=== PATIENT | male | born 1955 | race Caucasian/White ===

== ENCOUNTER 2019-02-06 07:52 | Inpatient (IN) ==
[2019-02-06] MEDS ORDERED: 0.9 % SODIUM CHLORIDE 1,000 ML IV ONE (08:07)
--- NOTE | 2019-02-06 09:05 | Emergency Department Note ---
General Adult HPI - General Chief complaint: Urogenital-Male Stated complaint: Hernia pain, Left leg pain, genital pain Time Seen by Provider: 02/06/19 09:02 Source: family, EMS Mode of arrival: EMS Limitations: no limitations - History of Present Illness HPI Narrative: Patient comes in for pain to the right lower extremity. Generally not feeling well. He's also had right inguinal hernia for the last several months with swelling in the groin area but he denies significant pain in that area. Mostly the pain is in the right lower leg which is erythematous also with a scab to the right lateral lower leg. He's been scratching at this. It generally does not feel well. He has some nausea but no vomiting, denies diarrhea, denies abdominal pain - Related Data Allergies Allergy/AdvReac Type Severity Reaction Status Date / Time No Known Drug Allergies Allergy Verified 02/06/19 07:57 Review of Systems Constitutional: Reports: fever, chills ENT ED: Denies: ear pain, throat pain Cardiovascular: Denies: chest pain, palpitations Respiratory: Denies: shortness of breath, cough Gastrointestinal: Reports: nausea. Denies: vomiting, diarrhea, constipation Genitourinary: Reports: testicular pain Musculoskeletal: Denies: back pain Past Medical History - Past Medical History Source: nursing notes reviewed Medical history: Reports: arthritis Surgical history ED: Reports: non-contributory - Social History smoking status: Former smoker Physical Exam Limitations: no limitations General appearance: alert, in no apparent distress, other (seems somewhat somnolent, responds however, awake alert oriented 3.) Head: atraumatic, normocephalic, other (disheveled and unkempt head) Eye: Present: normal appearance, PERRL, EOMI. Absent: scleral icterus ENT: normal exam, mucous membranes dry, TM's normal bilaterally Neck: Present: normal inspection, full ROM, trachea midline Chest: Present: normal inspection. Absent: symmetric chest wall rise Respiratory: Present: normal lung sounds bilaterally. Absent: respiratory distress Cardiovascular: Present: regular rate, normal heart sounds Abdominal: Present: soft, normal bowel sounds, hernia, other (large hernia to the right groin area.). Absent: tenderness : Present: testicular tenderness, other (large inguinal hernia on the right. He also has a small lesion to the shaft, less than 0.5 cm in size.) Extremities: Present: full ROM, tenderness, normal capillary refill, other (also notably he has significant track moise to the antecubital regions on both arms. Not markedly erythematous right lower leg on the lateral side ) Back: Absent: CVA tenderness (R), CVA tenderness (L) Neurological: Present: alert Psychiatric: Present: depressed Skin: Present: warm, dry, normal color, pallor Course - Reevaluation(s) Reevaluation #1: Patient was started on IV antibiotics. We had difficult time finding IV access it. I tried the external jugular in his neck on the right side. This was unsuccessful attempt. Further nurse was able to get in and IV to his left lower leg. At this point he may need venous access, he definitely has cellulitis to the right lower extremity with swelling and redness to the right lower leg. Still may need evaluation for DVT i.e. ultrasound or Doppler of the right lower extremity. Discussed hospital admission with our hospitalist Dr. Rodriguez Vital Signs Temperature 98.4 F 02/06/19 07:53 Pulse Rate 104 H 02/06/19 07:53 Respiratory Rate 18 02/06/19 07:53 Blood Pressure 129/87 02/06/19 07:53 Pulse Oximetry (%) 96 02/06/19 07:53 Temperature 100 F H 02/06/19 12:49 Pulse Rate 105 H 02/06/19 12:49 Respiratory Rate 22 02/06/19 12:49 Blood Pressure 117/81 02/06/19 12:49 Pulse Oximetry (%) 97 02/06/19 12:49 Medical Decision Making - [facility] Narrative Medical decision making narrative: Labs reviewed. His white count is elevated 14,000. He does have a large right inguinal hernia which clinically is soft and not incarcerated. I believe his white count is from cellulitis to the right lower extremity. We'll discuss with hospitalist regarding hospital admission. Final impression is right lower extremity cellulitis. With his tachycardia does meet sepsis criteria. 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 - Lab Data Result diagrams: 02/06/19 09:25 02/06/19 09:25 Lab Results 02/06/19 02/06/19 02/06/19 Range/Units 09:25 09:25 09:25 WBC 14.2 H (4.5-11.0) K/mcL RBC 4.42 L (4.50-5.90) M/mcL Hgb 13.9 (13.5-16.5) g/dL Hct 42.2 (41.0-55.0) % POC Hct (41.0-55.0) % MCV 95.4 (80.0-100.0) fL MCH 31.5 (26.0-34.0) pg MCHC 33.0 (31.0-36.0) g/dL RDW 13.6 (11.5-14.5) % Plt Count 119 L (140-440) K/mcL MPV 9.7 (7.4-10.4) fL Gran % 73.4 (38.0-78.0) % Lymph % (Auto) 18.1 (15.5-49.0) % [place] % (Auto) 6.5 (1.0-12.0) % Eos % (Auto) 1.6 (0.0-7.0) % Baso % (Auto) 0.4 (0.0-2.0) % Gran # 10.4 H (1.8-8.0) K/mcL Lymph # (Auto) 2.6 (1.5-4.8) K/mcL [place] # (Auto) 0.9 (0.1-0.9) K/mcL Eos # (Auto) 0.2 (0.0-0.7) K/mcL Baso # (Auto) 0.1 (0.0-0.3) K/mcL VBG Lactic Acid 0.9 (0.5-2.0) mmol/L POC Sodium (133-145) mmol/L Sodium 133 (133-145) mmol/L POC Potassium (3.3-5.1) mmol/L Potassium 4.5 (3.3-5.1) mmol/L POC Chloride (96-108) mmol/L Chloride 102 (96-108) mmol/L Carbon Dioxide 18 L (22-30) mmol/L POC Total CO2 (22-30) mmol/L Anion Gap 13.0 (8-16) POC BUN (8-23) mg/dl BUN 17 (8-23) mg/dl Creatinine 1.0 (0.7-1.2) mg/dl POC Creatinine (0.7-1.2) mg/dl GFR Calculation 79 Glucose 105 (70-105) mg/dL POC Glucose (70-105) mg/dL Calcium 9.0 (8.6-10.4) mg/dl POC WB Ioniz Calcium (1.16-1.32) mmol/L Total Bilirubin 0.3 (0.0-1.0) mg/dL AST 20 (0-37) U/l ALT 15 (0-40) U/l Alkaline Phosphatase 79 (39-117) U/L C-Reactive Protein (0.0-0.8) mg/dl Total Protein 6.7 (5.9-8.4) gm/dL Albumin 3.5 (3.2-5.2) gm/dL Globulin 3.2 (2.2-3.7) gm/dL Albumin/Globulin Ratio 1.1 (1.0-2.3) Urine Color Urine Appearance Urine pH (5.0-9.0) Ur Specific [place] (1.000-1.035) Urine Protein (NEG) mg/dL Urine Glucose (UA) (NEG) mg/dL Urine Ketones (NEG) mg/dL Urine Occult Blood (<0.03) mg/dL Urine Nitrate (NEG) Urine Bilirubin (NEG) mg/dL Urine Urobilinogen (NEG) mg/dL Ur Leukocyte Esterase (NEG) /uL Urine RBC (0-1) /hpf Urine WBC (0-4) /hpf Ur Squamous Epith Cells (0-4) /hpf Urine Bacteria (0) /hpf Urine Mucus (0) /hpf Ur Culture Indicated? Urine Opiates Screen (NONDETECTED) Ur Oxycodone Screen (NONDETECTED) Urine Methadone Screen (NONDETECTED) Ur Barbiturates Screen (NONDETECTED) Ur Phencyclidine Scrn (NONDETECTED) Ur Amphetamines Screen (NONDETECTED) U Benzodiazepines Scrn (NONDETECTED) Urine Cocaine Screen (NONDETECTED) U Marijuana (THC) Screen (NONDETECTED) 02/06/19 02/06/19 02/06/19 Range/Units 09:25 09:41 10:01 WBC (4.5-11.0) K/mcL RBC (4.50-5.90) M/mcL Hgb (13.5-16.5) g/dL Hct (41.0-55.0) % POC Hct 42.0 (41.0-55.0) % MCV (80.0-100.0) fL MCH (26.0-34.0) pg MCHC (31.0-36.0) g/dL RDW (11.5-14.5) % Plt Count (140-440) K/mcL MPV (7.4-10.4) fL Gran % (38.0-78.0) % Lymph % (Auto) (15.5-49.0) % [place] % (Auto) (1.0-12.0) % Eos % (Auto) (0.0-7.0) % Baso % (Auto) (0.0-2.0) % Gran # (1.8-8.0) K/mcL Lymph # (Auto) (1.5-4.8) K/mcL [place] # (Auto) (0.1-0.9) K/mcL Eos # (Auto) (0.0-0.7) K/mcL Baso # (Auto) (0.0-0.3) K/mcL VBG Lactic Acid (0.5-2.0) mmol/L POC Sodium 136 (133-145) mmol/L Sodium (133-145) mmol/L POC Potassium 4.2 (3.3-5.1) mmol/L Potassium (3.3-5.1) mmol/L POC Chloride 105 (96-108) mmol/L Chloride (96-108) mmol/L Carbon Dioxide (22-30) mmol/L POC Total CO2 23 (22-30) mmol/L Anion Gap (8-16) POC BUN 21 (8-23) mg/dl BUN (8-23) mg/dl Creatinine (0.7-1.2) mg/dl POC Creatinine 0.9 (0.7-1.2) mg/dl GFR Calculation Glucose (70-105) mg/dL POC Glucose 111 H (70-105) mg/dL Calcium (8.6-10.4) mg/dl POC WB Ioniz Calcium 0.93 L (1.16-1.32) mmol/L Total Bilirubin (0.0-1.0) mg/dL AST (0-37) U/l ALT (0-40) U/l Alkaline Phosphatase (39-117) U/L C-Reactive Protein 5.6 H (0.0-0.8) mg/dl Total Protein (5.9-8.4) gm/dL Albumin (3.2-5.2) gm/dL Globulin (2.2-3.7) gm/dL Albumin/Globulin Ratio (1.0-2.3) Urine Color Urine Appearance Urine pH (5.0-9.0) Ur Specific [place] (1.000-1.035) Urine Protein (NEG) mg/dL Urine Glucose (UA) (NEG) mg/dL Urine Ketones (NEG) mg/dL Urine Occult Blood (<0.03) mg/dL Urine Nitrate (NEG) Urine Bilirubin (NEG) mg/dL Urine Urobilinogen (NEG) mg/dL Ur Leukocyte Esterase (NEG) /uL Urine RBC (0-1) /hpf Urine WBC (0-4) /hpf Ur Squamous Epith Cells (0-4) /hpf Urine Bacteria (0) /hpf Urine Mucus (0) /hpf Ur Culture Indicated? Urine Opiates Screen None detected (NONDETECTED) Ur Oxycodone Screen None detected (NONDETECTED) Urine Methadone Screen None detected (NONDETECTED) Ur Barbiturates Screen None detected (NONDETECTED) Ur Phencyclidine Scrn None detected (NONDETECTED) Ur Amphetamines Screen Suspect positive A (NONDETECTED) U Benzodiazepines Scrn None detected (NONDETECTED) Urine Cocaine Screen None detected (NONDETECTED) U Marijuana (THC) Screen None detected (NONDETECTED) 02/06/19 Range/Units 10:01 WBC (4.5-11.0) K/mcL RBC (4.50-5.90) M/mcL Hgb (13.5-16.5) g/dL Hct (41.0-55.0) % POC Hct (41.0-55.0) % MCV (80.0-100.0) fL MCH (26.0-34.0) pg MCHC (31.0-36.0) g/dL RDW (11.5-14.5) % Plt Count (140-440) K/mcL MPV (7.4-10.4) fL Gran % (38.0-78.0) % Lymph % (Auto) (15.5-49.0) % [place] % (Auto) (1.0-12.0) % Eos % (Auto) (0.0-7.0) % Baso % (Auto) (0.0-2.0) % Gran # (1.8-8.0) K/mcL Lymph # (Auto) (1.5-4.8) K/mcL [place] # (Auto) (0.1-0.9) K/mcL Eos # (Auto) (0.0-0.7) K/mcL Baso # (Auto) (0.0-0.3) K/mcL VBG Lactic Acid (0.5-2.0) mmol/L POC Sodium (133-145) mmol/L Sodium (133-145) mmol/L POC Potassium (3.3-5.1) mmol/L Potassium (3.3-5.1) mmol/L POC Chloride (96-108) mmol/L Chloride (96-108) mmol/L Carbon Dioxide (22-30) mmol/L POC Total CO2 (22-30) mmol/L Anion Gap (8-16) POC BUN (8-23) mg/dl BUN (8-23) mg/dl Creatinine (0.7-1.2) mg/dl POC Creatinine (0.7-1.2) mg/dl GFR Calculation Glucose (70-105) mg/dL POC Glucose (70-105) mg/dL Calcium (8.6-10.4) mg/dl POC WB Ioniz Calcium (1.16-1.32) mmol/L Total Bilirubin (0.0-1.0) mg/dL AST (0-37) U/l ALT (0-40) U/l Alkaline Phosphatase (39-117) U/L C-Reactive Protein (0.0-0.8) mg/dl Total Protein (5.9-8.4) gm/dL Albumin (3.2-5.2) gm/dL Globulin (2.2-3.7) gm/dL Albumin/Globulin Ratio (1.0-2.3) Urine Color Yellow Urine Appearance Clear Urine pH 7.0 (5.0-9.0) Ur Specific [place] 1.021 (1.000-1.035) Urine Protein Neg (NEG) mg/dL Urine Glucose (UA) 50 A (NEG) mg/dL Urine Ketones Neg (NEG) mg/dL Urine Occult Blood 0.03 A (<0.03) mg/dL Urine Nitrate Neg (NEG) Urine Bilirubin Neg (NEG) mg/dL Urine Urobilinogen Neg (NEG) mg/dL Ur Leukocyte Esterase Neg (NEG) /uL Urine RBC 7 H (0-1) /hpf Urine WBC < 1 (0-4) /hpf Ur Squamous Epith Cells 0 (0-4) /hpf Urine Bacteria 0 (0) /hpf Urine Mucus Few (0) /hpf Ur Culture Indicated? No Urine Opiates Screen (NONDETECTED) Ur Oxycodone Screen (NONDETECTED) Urine Methadone Screen (NONDETECTED) Ur Barbiturates Screen (NONDETECTED) Ur Phencyclidine Scrn (NONDETECTED) Ur Amphetamines Screen (NONDETECTED) U Benzodiazepines Scrn (NONDETECTED) Urine Cocaine Screen (NONDETECTED) U Marijuana (THC) Screen (NONDETECTED) Disposition Pt seen by HEALTH SCIENCES MANAGER/PA only: No Clinical Impression: Cellulitis of right leg Disposition: Xfer As Inpt ([facility]) Condition: Fair
[2019-02-06] MEDS ORDERED: VANCOMYCIN 1,500 MG in 0.9 % SODIUM CHLORIDE 500 ML IV ONE (09:07)
[2019-02-06 09:47] LABS: POC Blood Urea Nitrogen 21 mg/dl (8-23); POC CO2 23 mmol/L (22-30); POC Calcium, Ionized 0.93 mmol/L (1.16-1.32); POC Chloride 105 mmol/L (96-108); POC Creatinine 0.9 mg/dl (0.7-1.2); POC Glucose, Random 111 mg/dL (70-105); POC Potassium 4.2 mmol/L (3.3-5.1); POC Sodium 136 mmol/L (133-145)
[2019-02-06 10:22] LABS: Basophils # (Auto) 0.1 K/mcL (0.0-0.3); Basophils % (Auto) 0.4 % (0.0-2.0); Eosinophils # (Auto) 0.2 K/mcL (0.0-0.7); Eosinophils % (Auto) 1.6 % (0.0-7.0); Granulocytes % (Auto) 73.4 % (38.0-78.0); Hematocrit 42.2 % (41.0-55.0); Hemoglobin 13.9 g/dL (13.5-16.5); Lymphocytes # (Auto) 2.6 K/mcL (1.5-4.8); Lymphocytes % (Auto) 18.1 % (15.5-49.0); Mean Cell Volume 95.4 fL (80.0-100.0); Mean Platelet Volume 9.7 fL (7.4-10.4); Monocytes # (Auto) 0.9 K/mcL (0.1-0.9); Monocytes % (Auto) 6.5 % (1.0-12.0); Platelet Count 119 K/mcL (140-440); RBC 4.42 M/mcL (4.50-5.90); Red Cell Distribution Width 13.6 % (11.5-14.5); WBC 14.2 K/mcL (4.5-11.0)
[2019-02-06 10:44] LABS: ALT/SGPT 15 U/l (0-40); AST/SGOT 20 U/l (0-37); Albumin 3.5 gm/dL (3.2-5.2); Albumin/Globulin Ratio 1.1 (1.0-2.3); Alkaline Phosphatase 79 U/L (39-117); Bilirubin,Total 0.3 mg/dL (0.0-1.0); Blood Urea Nitrogen 17 mg/dl (8-23); Carbon Dioxide 18 mmol/L (22-30); Chloride 102 mmol/L (96-108); Globulin 3.2 gm/dL (2.2-3.7); Glomerular Filtration Rate 79; Glucose 105 mg/dL (70-105)
[2019-02-06 10:47] LABS: Amphetamine Screen,Urine SUSPECT POSITIVE (NONDETECTED); Appearance,Urine CLEAR; Bacteria,Urine 0 /hpf (0); Barbiturate Screen,Urine NONE DETECTED (NONDETECTED); Benzodiazepines Screen,Urine NONE DETECTED (NONDETECTED); Bilirubin,Urine NEG (NEG); Cannabinoid Screen,Urine NONE DETECTED (NONDETECTED); Cocaine Screen,Urine NONE DETECTED (NONDETECTED); Color,Urine YELLOW; Culture Indicated,Urine NO; Glucose,Urine (UA) 50 mg/dL (NEG); Ketones,Urine NEG (NEG); Leukocyte Esterase,Urine NEG /uL (NEG); Mucus,Urine FEW /hpf (0); Nitrate,Urine NEG (NEG); Opiate Screen,Urine NONE DETECTED (NONDETECTED); Oxycodone, Urine Screen NONE DETECTED (NONDETECTED); Phencyclidine Screen,Urine NONE DETECTED (NONDETECTED); Protein,Urine NEG (NEG); Specific Gravity,Urine 1.021 (1.000-1.035); Urine Blood 0.03 mg/dL (<0.03); Urine RBC 7 /hpf (0-1); Urine Squamous Epithelial Cell 0 /hpf (0-4); Urine WBC < 1 /hpf (0-4); Urobilinogen,Urine NEG (NEG)
[2019-02-06] MEDS ORDERED: ACETAMINOPHEN 325 MG TABLET PO ONE (12:46)
[2019-02-06] MEDS ORDERED: 0.9 % SODIUM CHLORIDE 1,000 ML IV SCH (13:00)
--- NOTE | 2019-02-06 13:38 | Internal Med History&Physical ---
Medical - H&P: HPI Patient information: Note initiated : 02/06/19 at 1:35 pm Service Date, if different from initiated Date: [] Patient: Ruben Su a 63 y/o M admitted on for Hernia Pain, Left Leg Pain, Genital Pain. Chief Complaint: [] History of present illness: Mr. Su is a 63 year old M with history of IV drug abuse presents to the emergency room today for evaluation of pain in his right lower extremity not feeling well fever and chills started this morning. The patient what his baseline status yesterday evening I believe he was visiting his mother, his girlfriend and him drove back last night. According to the girlfriend around midnight the patient started to show signs of confusion he was not himself and was not answering some questions appropriately. Around 3:00 this morning the the girlfriend noticed that the patient was hot to touch, had some chills sweaty, he also had pain in his right lower extremity. Patient was therefore brought to the emergency room for further evaluation The patient initially denied use of drug abuse however later admitted that he had short methamphetamine a day or 2 ago. He denies using any other types of drugs On presenting to the emergency room patient had low-grade fever heart rate, tachycardic heart rate ranging from 100 220, blood pressure 117/81, saturating 97% on room air. White blood cell count is elevated at 14.2 hemoglobin 13.9 platelets 119 lactic acid is 0.9 sodium 136 potassium 4.2 bicarbonate 23 creatinine 0.9 glucose 111 UA is negative for infection however does have a few RBCs indicative of microscopic hematuria EKG shows sinus tachycardia, slow progression of R waves in anterior leads indicative of old ASM I. Patient is being admitted to the hospital for further management the diagnosis of right lower extremity cellulitis It was very difficult to establish an IV access and lost IV access for some blood draw was got on the left lower extremity. He did get vancomycin and IV fluids via this access. All systems: reviewed and no additional remarkable complaints except as stated (As per HPI rest negative) Medical - H&P: PMH Medical history: History of hep C status post treatment as per patient, gastritis, IV drug use, bilateral hernias Surgical history: No major surgery reported Pertinent family history: Nephew has lymphoma Social history: Lives with girlfriend IV drug abuse with methamphetamine,smoker active, admits to light alcohol consumption, denies any other drug use Medical - H&P: Meds Allergies Allergy/AdvReac Type Severity Reaction Status Date / Time No Known Drug Allergies Allergy Verified 02/06/19 07:57 Medical - H&P: Exam - Constitutional Vitals: Temp Pulse Resp BP Pulse Ox 100 F H 102 H 19 133/93 98 02/06/19 12:49 02/06/19 13:23 02/06/19 13:23 02/06/19 13:23 02/06/19 13:23 Exam: GENERAL: The patient is a well-developed, well-nourished in no apparent distress. Is alert and oriented x3. VITAL SIGNS: Reviewed and as noted elsewhere. HEENT: Head is normocephalic and atraumatic. Extraocular muscles are intact. Pupils are equal, round, and reactive to light. Nares appeared normal. Mouth appears any without lesions. Mucous membranes are moist. NECK: Normal to inspection, Supple, No lymphadenopathy or thyromegaly. LUNGS: Air entry equal on both sides, no wheezing, crackles or rhonchi noted. No accessory muscles of respiration HEART: Regular tachycardic rate and rhythm normal, S1 and S2 heard, no Gallop, S3 or Rub Noted, No Gross murmur heard. ABDOMEN: Soft, nontender, and nondistended. Positive bowel sounds. No hepatosplenomegaly was noted. EXTREMITIES: No cyanosis, clubbing, rash, multiple track moise noted upper as well as lower extremity, patient has erythema on the right lower extremity extending from right below the knee also involving the ankles. No obvious fluctuations noted no skip lesions noted NEUROLOGIC: Cranial nerves II through XII are grossly intact. Motor and Sensory System Grossly Intact PSYCHIATRIC: Normal affect, Normal Mood. Appropriate Behavior. SKIN: No ulceration or wounds noted, No jaundice, No rash noted. Medical - H&P: Reslt - Labs CBC & Chem 7: 02/06/19 09:25 02/06/19 09:25 Labs: Short CBC 02/06/19 Range/Units 09:25 WBC 14.2 H (4.5-11.0) K/mcL Hgb 13.9 (13.5-16.5) g/dL Hct 42.2 (41.0-55.0) % Plt Count 119 L (140-440) K/mcL BMP 02/06/19 09:25 Sodium 133 Potassium 4.5 Chloride 102 Carbon Dioxide 18 L BUN 17 Creatinine 1.0 Glucose 105 Calcium 9.0 Liver Function 02/06/19 Range/Units 09:25 Total Bilirubin 0.3 (0.0-1.0) mg/dL AST 20 (0-37) U/l ALT 15 (0-40) U/l Alkaline Phosphatase 79 (39-117) U/L Albumin 3.5 (3.2-5.2) gm/dL Urine 02/06/19 Range/Units 10:01 Urine Color Yellow Urine Appearance Clear Urine pH 7.0 (5.0-9.0) Ur Specific [place] 1.021 (1.000-1.035) Urine Protein Neg (NEG) mg/dL Urine Glucose (UA) 50 A (NEG) mg/dL Medical - H&P: A/P - Narrative A/P Narrative: A/P Sepsis Cellulitis Methaphetamine use h/o Hep C Tobacco abuse GERD Plan Admit to med surg IV vanco and rocephin get blood cultures, if positive will get echo to evaluate for vegetations Place midline for now, given no iv access Aggressive fluid resuscitation Pt declined nicotine replacement Famotidine for gerd Regular diet Full code
[2019-02-06] MEDS ORDERED: traZODone HCL 50 MG TABLET PO PRN (14:36)
[2019-02-06] MEDS ORDERED: ALBUTEROL SULFATE 2.5 MG/3 ML NEBULIZER NEB PRN (14:36)
[2019-02-06] MEDS ORDERED: ONDANSETRON 4 MG/2 ML VIAL IV PRN (14:36)
[2019-02-06] MEDS ORDERED: IBUPROFEN 600 MG TABLET PO PRN (14:36)
[2019-02-06] MEDS ORDERED: NALOXONE HCL 0.4 MG/ML VIAL IV PRN (14:36)
[2019-02-06] MEDS ORDERED: VANCOMYCIN PER PHARMACY IV SCH (14:36)
[2019-02-06] MEDS ORDERED: oxyCODONE HCL 5 MG TABLET PO PRN (14:36)
[2019-02-06] MEDS ORDERED: LACTATED RINGERS 1,000 ML IV ONE ×2 (14:36)
[2019-02-06] MEDS: cefTRIAXone 2 GM in DEXTROSE 5% IN WATER 50 ML IV SCH (16:05)
[2019-02-06] MEDS: 0.9 % SODIUM CHLORIDE 10 ML SYRINGE IV SCH ×3 (17:49→21:06)
[2019-02-06] MEDS: ACETAMINOPHEN 325 MG TABLET PO SCH ×2 (17:55→23:12)
[2019-02-06] MEDS: LACTATED RINGERS 1,000 ML IV SCH (19:25)
[2019-02-06] MEDS: VANCOMYCIN 1,000 MG in 0.9 % SODIUM CHLORIDE 250 ML IV SCH (20:55)
[2019-02-06] MEDS: FAMOTIDINE 20 MG TABLET PO SCH (20:56)
[2019-02-06] MEDS: HEPARIN 5,000 UNIT/ML VIAL SQ SCH (20:56)
[2019-02-06] MEDS: ACETAMINOPHEN 500 MG TABLET PO SCH (21:42)
[2019-02-07] MEDS: LACTATED RINGERS 1,000 ML IV SCH ×3 (04:13→13:45)
[2019-02-07] MEDS: 0.9 % SODIUM CHLORIDE 10 ML SYRINGE IV SCH ×5 (05:08→23:16)
[2019-02-07 05:39] LABS: Basophils # (Auto) 0.1 K/mcL (0.0-0.3); Basophils % (Auto) 0.4 % (0.0-2.0); Eosinophils # (Auto) 0.5 K/mcL (0.0-0.7); Eosinophils % (Auto) 3.5 % (0.0-7.0); Granulocytes % (Auto) 75.6 % (38.0-78.0); Hematocrit 40.4 % (41.0-55.0); Hemoglobin 13.2 g/dL (13.5-16.5); Lymphocytes % (Auto) 13.3 % (15.5-49.0); Mean Cell Volume 96.5 fL (80.0-100.0); Mean Corpuscular HGB Conc 32.7 g/dL (31.0-36.0); Mean Platelet Volume 9.6 fL (7.4-10.4); Monocytes # (Auto) 1.1 K/mcL (0.1-0.9); Monocytes % (Auto) 7.2 % (1.0-12.0); Platelet Count 258 K/mcL (140-440); RBC 4.19 M/mcL (4.50-5.90); Red Cell Distribution Width 13.5 % (11.5-14.5); WBC 14.9 K/mcL (4.5-11.0)
[2019-02-07 05:56] LABS: ALT/SGPT 13 U/l (0-40); AST/SGOT 12 U/l (0-37); Albumin 3.2 gm/dL (3.2-5.2); Albumin/Globulin Ratio 1.1 (1.0-2.3); Alkaline Phosphatase 69 U/L (39-117); Bilirubin,Direct < 0.2 mg/dL (0.0-0.3); Bilirubin,Total 0.5 mg/dL (0.0-1.0); Blood Urea Nitrogen 9 mg/dl (8-23); Calcium 8.3 mg/dl (8.6-10.4); Carbon Dioxide 27 mmol/L (22-30); Chloride 104 mmol/L (96-108); Globulin 2.9 gm/dL (2.2-3.7); Glomerular Filtration Rate 99; Glucose 92 mg/dL (70-105); Lactate Dehydrogenase 149 U/L (94-250); Phosphorous 2.8 mg/dL (2.7-4.5); Triglycerides 89 mg/dl (<150); Uric Acid 3.5 mg/dL (2.5-8.0)
[2019-02-07] MEDS: cefTRIAXone 2 GM in DEXTROSE 5% IN WATER 50 ML IV SCH (09:22)
[2019-02-07] MEDS: FAMOTIDINE 20 MG TABLET PO SCH ×2 (09:23→21:02)
[2019-02-07] MEDS: ACETAMINOPHEN 500 MG TABLET PO SCH ×3 (09:23→21:02)
[2019-02-07] MEDS: HEPARIN 5,000 UNIT/ML VIAL SQ SCH ×2 (09:34→21:02)
[2019-02-07] MEDS: VANCOMYCIN 1,000 MG in 0.9 % SODIUM CHLORIDE 250 ML IV SCH ×2 (10:09→21:02)
--- NOTE | 2019-02-07 12:14 | Internal Med Progress Note ---
Medical - PN: Subj Patient information: Note initiated : 02/07/19 at 12:12 pm Service Date, if different from initiated Date: [] Patient: Ruben Su a 63 y/o M admitted on 02/06/19 for Hernia Pain, Left Leg Pain, Genital Pain. Chief Complaint: [] Interval history: Mr. Su is a 63 year old M with history of IV drug abuse presents to the emergency room today for evaluation of pain in his right lower extremity not feeling well fever and chills started this morning. The patient what his baseline status yesterday evening I believe he was visiting his mother, his girlfriend and him drove back last night. According to the girlfriend around midnight the patient started to show signs of confusion he was not himself and was not answering some questions appropriately. Around 3:00 this morning the the girlfriend noticed that the patient was hot to touch, had some chills sweaty, he also had pain in his right lower extremity. Patient was therefore brought to the emergency room for further evaluation The patient initially denied use of drug abuse however later admitted that he had short methamphetamine a day or 2 ago. He denies using any other types of drugs On presenting to the emergency room patient had low-grade fever heart rate, tachycardic heart rate ranging from 100 220, blood pressure 117/81, saturating 97% on room air. White blood cell count is elevated at 14.2 hemoglobin 13.9 platelets 119 lactic acid is 0.9 sodium 136 potassium 4.2 bicarbonate 23 creatinine 0.9 glucose 111 UA is negative for infection however does have a few RBCs indicative of microscopic hematuria EKG shows sinus tachycardia, slow progression of R waves in anterior leads indicative of old ASM I. Patient is being admitted to the hospital for further management the diagnosis of right lower extremity cellulitis It was very difficult to establish an IV access and lost IV access for some blood draw was got on the left lower extremity. He did get vancomycin and IV fluids via this access. 02/07 Patient seen and examined, no acute overnight events, WBC count has trended down. Cellulitis appears much improved clinically. Patient still has chills Pertinent ROS: Denies headache, dizziness Denies chest pain, palpitations Denies cough or shortness of breath Denies abdominal pain, nausea or vomiting. - Constitutional Vitals: Vital Signs Temp Pulse Resp BP Pulse Ox 97.7 F 87 20 111/72 91 02/07/19 11:50 02/07/19 03:47 02/07/19 11:50 02/07/19 11:50 02/07/19 11:50 Period Temp Pulse Resp BP Sys/Bansal Pulse Ox Last 24 Hr 97.5 F-100 F 86-124 13-25 111-144/72-98 90-98 Intake and Output 02/06/19 02/07/19 02/07/19 21:59 05:59 13:59 Intake Total 1422 1000 740 Output Total 2000 900 725 Balance -578 100 15 Weight 140 lb 140 lb Patient Weight 02/08/19 05:59 Weight 140 lb Intake & Output: Intake & Output 02/06/19 02/07/19 02/07/19 21:59 05:59 13:59 Intake Total 1422 1000 740 Output Total 1999 900 725 Balance -578 100 15 Weight 140 lb 140 lb Intake: IV 1422 1000 Sodium Chloride 0.9% 1,000 ml @ 122 100 mls/hr IV .Q10H [facility] Rx#: [id number] Lactated Ringers 1,000 ml @ 125 1000 mls/hr IV .Q8H [facility] Rx#: [id number] Vancomycin 1,000 mg In Sodium 250 Chloride 0.9% 250 ml @ 250 mls/ hr IV Q12H [facility] Rx#:[id number] Rocephin 2 gm In Dextrose 5% in 50 Water 50 ml @ 100 mls/hr IV Q24H [facility] Rx#:[id number] Oral 740 Output: Void Amount 1999 900 725 Other: Meal Breakfast Percent of Meal Consumed 100% Feeding Ability Independent Urine Appearance Clear Clear Clear Urine Color Pale Pale Exam: Constitutional; Afebrile, cooperative, alert, not in distress. Eyes- No icterus, , No periorbital swelling Ears- Ext ear normal, hearing normal to conversation. Neck- Midline trachea, supple Respiratory system: Air Entry equal on both sides, No crackles or wheezing, no rhonchi. CVS- Rate rhythm regular, S1,S2 heard, no gallop, no rub. Abdomen- Soft nontender abdomen, no organomegaly, no tenderness, no guarding or rigidity, GEOPHYSICAL LABORATORY DIRECTOR- AOOx3, moving all extremities, no gross focal deficit noted. Medical - PN: Obj Da - Labs CBC & Chem 7: 02/07/19 04:15 02/07/19 04:15 Labs: Abnormal Lab Results 02/07/19 02/07/19 02/06/19 04:15 04:15 10:01 WBC 14.9 H RBC 4.19 L Hgb 13.2 L Hct 40.4 L Plt Count Lymph % (Auto) 13.3 L Gran # 11.2 H [place] # (Auto) 1.1 H Carbon Dioxide Anion Gap 7.0 L POC Glucose Calcium 8.3 L POC WB Ioniz Calcium C-Reactive Protein Urine Glucose (UA) 50 A Urine Occult Blood 0.03 A Urine RBC 7 H Ur Amphetamines Screen 02/06/19 02/06/19 02/06/19 10:01 09:41 09:25 WBC RBC Hgb Hct Plt Count Lymph % (Auto) Gran # [place] # (Auto) Carbon Dioxide Anion Gap POC Glucose 111 H Calcium POC WB Ioniz Calcium 0.93 L C-Reactive Protein 5.6 H Urine Glucose (UA) Urine Occult Blood Urine RBC Ur Amphetamines Screen Suspect positive A 02/06/19 02/06/19 09:25 09:25 WBC 14.2 H RBC 4.42 L Hgb Hct Plt Count 119 L Lymph % (Auto) Gran # 10.4 H [place] # (Auto) Carbon Dioxide 18 L Anion Gap POC Glucose Calcium POC WB Ioniz Calcium C-Reactive Protein Urine Glucose (UA) Urine Occult Blood Urine RBC Ur Amphetamines Screen Meds: Medications Acetaminophen (Tylenol) 1,000 mg PO TID [facility] Last Admin: 02/07/19 09:23 Dose: 1,000 mg Documented by: Albuterol Sulfate (Ventolin) 2.5 mg NEB Q2HP PRN PRN Reason: Shortness Of Breath Famotidine (Pepcid) 20 mg PO BID [facility] Last Admin: 02/07/19 09:23 Dose: 20 mg Documented by: Heparin Sodium (Porcine) (Heparin Flush) 2 ml IV Q12 [facility] Last Admin: 02/07/19 09:22 Dose: 2 ml Documented by: Heparin Sodium (Porcine) (Heparin) 5,000 unit SQ Q12 [facility] Last Admin: 02/07/19 09:34 Dose: 5,000 unit Documented by: Ceftriaxone Sodium 2 gm/ (Dextrose) 50 mls @ 100 mls/hr IV Q24H [facility] Last Admin: 02/07/19 09:22 Dose: 100 mls/hr Documented by: Lactated Ringer's (Lactated Ringers) 1,000 mls @ 125 mls/hr IV .Q8H [facility] Last Admin: 02/07/19 09:22 Dose: Not Given Documented by: Vancomycin HCl 1,000 mg/ (Sodium Chloride) 250 mls @ 250 mls/hr IV Q12H [facility] Last Admin: 02/07/19 10:09 Dose: 250 mls/hr Documented by: Ibuprofen (Motrin) 600 mg PO QIDP PRN PRN Reason: PAIN/FEVER > 101 Naloxone HCl (Narcan) 0.1 mg IV Q2MIN PRN PRN Reason: Opiate Reversal Ondansetron HCl (Zofran) 4 mg IV Q6HP PRN PRN Reason: Nausea And Vomiting Oxycodone HCl (Roxicodone) 5 mg PO Q4HP PRN PRN Reason: pain not responding to apap Sodium Chloride (Saline Flush) 10 ml IV Q12 [facility] Last Admin: 02/07/19 09:23 Dose: Not Given Documented by: Sodium Chloride (Saline Flush) 10 ml IV Q8 [facility] Last Admin: 02/07/19 05:08 Dose: Not Given Documented by: Trazodone HCl (Desyrel) 50 mg PO HSP PRN PRN Reason: Insomnia Vancomycin HCl (Vancomycin Per Pharmacy) 1 order IV UD [facility]; Protocol Medical - PN: A/P - Time Spent With Patient Total time spent is greater than 50% in coordination of care (as documented) at patient's floor/unit and/or counseling patient: - Narrative A/P Narrative: A/P Sepsis Cellulitis Methaphetamine use h/o Hep C Tobacco abuse GERD Plan conitnue on abx day 2 today IV vanco and rocephin get blood cultures, results neg so far midline placed Aggressive fluid resuscitation, pt tachcyardia has responded, wbc is normal hr normal Pt declined nicotine replacement Famotidine for gerd Regular diet Full code Medical - PN: Qual - VTE Deep Vein Thrombosis/Pulmonary Embolism Present on Admission: No
[2019-02-08] MEDS: LACTATED RINGERS 1,000 ML IV SCH ×5 (01:29→23:14)
[2019-02-08] MEDS: 0.9 % SODIUM CHLORIDE 10 ML SYRINGE IV SCH ×5 (04:28→21:18)
[2019-02-08 05:24] LABS: Basophils # (Auto) 0.1 K/mcL (0.0-0.3); Basophils % (Auto) 1.1 % (0.0-2.0); Eosinophils # (Auto) 0.5 K/mcL (0.0-0.7); Eosinophils % (Auto) 4.1 % (0.0-7.0); Granulocytes % (Auto) 68.8 % (38.0-78.0); Hematocrit 41.3 % (41.0-55.0); Hemoglobin 13.5 g/dL (13.5-16.5); Lymphocytes # (Auto) 2.3 K/mcL (1.5-4.8); Lymphocytes % (Auto) 18.4 % (15.5-49.0); Mean Cell Volume 96.1 fL (80.0-100.0); Mean Corpuscular HGB Conc 32.8 g/dL (31.0-36.0); Mean Platelet Volume 9.7 fL (7.4-10.4); Monocytes % (Auto) 7.6 % (1.0-12.0); Platelet Count 283 K/mcL (140-440); RBC 4.29 M/mcL (4.50-5.90); Red Cell Distribution Width 13.4 % (11.5-14.5); WBC 12.6 K/mcL (4.5-11.0)
[2019-02-08 05:33] LABS: ALT/SGPT 17 U/l (0-40); AST/SGOT 16 U/l (0-37); Albumin 3.3 gm/dL (3.2-5.2); Albumin/Globulin Ratio 1.1 (1.0-2.3); Alkaline Phosphatase 72 U/L (39-117); Bilirubin,Direct < 0.2 mg/dL (0.0-0.3); Bilirubin,Total < 0.2 mg/dL (0.0-1.0); Blood Urea Nitrogen 10 mg/dl (8-23); Calcium 8.5 mg/dl (8.6-10.4); Carbon Dioxide 26 mmol/L (22-30); Chloride 106 mmol/L (96-108); Glomerular Filtration Rate 99; Glucose 116 mg/dL (70-105); Lactate Dehydrogenase 172 U/L (94-250); Phosphorous 3.2 mg/dL (2.7-4.5); Triglycerides 100 mg/dl (<150); Uric Acid 3.4 mg/dL (2.5-8.0)
[2019-02-08] MEDS: cefTRIAXone 2 GM in DEXTROSE 5% IN WATER 50 ML IV SCH (08:34)
[2019-02-08] MEDS: ACETAMINOPHEN 500 MG TABLET PO SCH ×3 (09:43→21:17)
[2019-02-08] MEDS: VANCOMYCIN 1,000 MG in 0.9 % SODIUM CHLORIDE 250 ML IV SCH ×2 (09:43→21:17)
[2019-02-08] MEDS: HEPARIN 5,000 UNIT/ML VIAL SQ SCH ×2 (09:43→21:17)
[2019-02-08] MEDS: FAMOTIDINE 20 MG TABLET PO SCH ×2 (09:43→21:17)
--- NOTE | 2019-02-08 11:12 | Internal Med Progress Note ---
Medical - PN: Subj Patient information: Note initiated : 02/08/19 at 11:09 am Service Date, if different from initiated Date: [] Patient: Ruben Su a 63 y/o M admitted on 02/06/19 for Hernia Pain, Left Leg Pain, Genital Pain. Chief Complaint: [] Interval history: Mr. Su is a 63 year old M with history of IV drug abuse presents to the emergency room today for evaluation of pain in his right lower extremity not feeling well fever and chills started this morning. The patient what his baseline status yesterday evening I believe he was visiting his mother, his girlfriend and him drove back last night. According to the girlfriend around midnight the patient started to show signs of confusion he was not himself and was not answering some questions appropriately. Around 3:00 this morning the the girlfriend noticed that the patient was hot to touch, had some chills sweaty, he also had pain in his right lower extremity. Patient was therefore brought to the emergency room for further evaluation The patient initially denied use of drug abuse however later admitted that he had short methamphetamine a day or 2 ago. He denies using any other types of drugs On presenting to the emergency room patient had low-grade fever heart rate, tachycardic heart rate ranging from 100 220, blood pressure 117/81, saturating 97% on room air. White blood cell count is elevated at 14.2 hemoglobin 13.9 platelets 119 lactic acid is 0.9 sodium 136 potassium 4.2 bicarbonate 23 creatinine 0.9 glucose 111 UA is negative for infection however does have a few RBCs indicative of microscopic hematuria EKG shows sinus tachycardia, slow progression of R waves in anterior leads indicative of old ASM I. Patient is being admitted to the hospital for further management the diagnosis of right lower extremity cellulitis It was very difficult to establish an IV access and lost IV access for some blood draw was got on the left lower extremity. He did get vancomycin and IV fluids via this access. 02/07 Patient seen and examined, no acute overnight events, WBC count has trended down. Cellulitis appears much improved clinically. Patient still has chills 02/08 Patient seen examined, no acute issues, tolerating po diet well no cp, sob, feels much better left swelling and erythema much improved pain much improved blood cultures are negative still at 24 hrs Pertinent ROS: Denies headache, dizziness Denies chest pain, palpitations Denies cough or shortness of breath Denies abdominal pain, nausea or vomiting. - Constitutional Vitals: Vital Signs Temp Pulse Resp BP Pulse Ox 98 F 90 16 120/77 94 02/08/19 07:02 02/08/19 07:02 02/08/19 07:02 02/08/19 07:02 02/08/19 07:02 Period Temp Pulse Resp BP Sys/Bansal Pulse Ox Last 24 Hr 97.7 F-98.9 F 90-122 14-20 111-139/72-92 91-94 Intake and Output 02/07/19 02/08/19 02/08/19 21:59 05:59 13:59 Intake Total 8580 171 3715 Output Total 1000 1675 550 Balance 400 -1125 1340 Weight 141 lb Intake & Output: Intake & Output 02/07/19 02/08/19 02/08/19 21:59 05:59 13:59 Intake Total 7233 688 2876 Output Total 1000 1675 550 Balance 400 -1125 1340 Weight 141 lb Intake: IV 1709 194 7329 Lactated Ringers 1,000 ml @ 125 1000 1000 mls/hr IV .Q8H [facility] Rx#: [id number] Vancomycin 1,000 mg In Sodium 250 Chloride 0.9% 250 ml @ 250 mls/ hr IV Q12H [facility] Rx#:[id number] Rocephin 2 gm In Dextrose 5% in 50 Water 50 ml @ 100 mls/hr IV Q24H [facility] Rx#:[id number] Oral 400 300 840 Output: Void Amount 1000 1675 550 Other: Meal Dinner Breakfast Percent of Meal Consumed 100% 100% Feeding Ability Independent Urine Appearance Clear Urine Color Bright Yellow Pale Urine Odor Strong Normal Exam: Constitutional; Afebrile, cooperative, alert, not in distress. Respiratory system: Air Entry equal on both sides, No crackles or wheezing, no rhonchi. CVS- Rate rhythm regular, S1,S2 heard, no gallop, no rub. 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 Right leg -eythema much improved, tenderness much improved, nearly 70 % resolution since admission Medical - PN: Obj Da - Labs CBC & Chem 7: 07/21/19 04:23 02/08/19 04:23 Labs: Abnormal Lab Results 02/08/19 02/08/19 02/07/19 04:23 04:23 04:15 WBC 12.6 H RBC 4.29 L Hgb Hct Plt Count Lymph % (Auto) Gran # 8.6 H [place] # (Auto) 1.0 H Carbon Dioxide Anion Gap 7.0 L Glucose 116 H POC Glucose Calcium 8.5 L 8.3 L POC WB Ioniz Calcium C-Reactive Protein Urine Glucose (UA) Urine Occult Blood Urine RBC Ur Amphetamines Screen 02/07/19 02/06/19 02/06/19 04:15 10:01 10:01 WBC 14.9 H RBC 4.19 L Hgb 13.2 L Hct 40.4 L Plt Count Lymph % (Auto) 13.3 L Gran # 11.2 H [place] # (Auto) 1.1 H Carbon Dioxide Anion Gap Glucose POC Glucose Calcium POC WB Ioniz Calcium C-Reactive Protein Urine Glucose (UA) 50 A Urine Occult Blood 0.03 A Urine RBC 7 H Ur Amphetamines Screen Suspect positive A 02/06/19 02/06/19 02/06/19 09:41 09:25 09:25 WBC RBC Hgb Hct Plt Count Lymph % (Auto) Gran # [place] # (Auto) Carbon Dioxide 18 L Anion Gap Glucose POC Glucose 111 H Calcium POC WB Ioniz Calcium 0.93 L C-Reactive Protein 5.6 H Urine Glucose (UA) Urine Occult Blood Urine RBC Ur Amphetamines Screen 02/06/19 09:25 WBC 14.2 H RBC 4.42 L Hgb Hct Plt Count 119 L Lymph % (Auto) Gran # 10.4 H [place] # (Auto) Carbon Dioxide Anion Gap Glucose POC Glucose Calcium POC WB Ioniz Calcium C-Reactive Protein Urine Glucose (UA) Urine Occult Blood Urine RBC Ur Amphetamines Screen Meds: Medications Acetaminophen (Tylenol) 1,000 mg PO TID [facility] Last Admin: 02/08/19 09:43 Dose: 1,000 mg Documented by: Albuterol Sulfate (Ventolin) 2.5 mg NEB Q2HP PRN PRN Reason: Shortness Of Breath Famotidine (Pepcid) 20 mg PO BID [facility] Last Admin: 02/08/19 09:43 Dose: 20 mg Documented by: Heparin Sodium (Porcine) (Heparin Flush) 2 ml IV Q12 [facility] Last Admin: 02/08/19 09:43 Dose: 2 ml Documented by: Heparin Sodium (Porcine) (Heparin) 5,000 unit SQ Q12 [facility] Last Admin: 02/08/19 09:43 Dose: 5,000 unit Documented by: Ceftriaxone Sodium 2 gm/ (Dextrose) 50 mls @ 100 mls/hr IV Q24H [facility] Last Infusion: 02/08/19 09:04 Dose: Infused Documented by: Lactated Ringer's (Lactated Ringers) 1,000 mls @ 125 mls/hr IV .Q8H [facility] Last Admin: 02/08/19 09:51 Dose: 125 mls/hr Documented by: Vancomycin HCl 1,000 mg/ (Sodium Chloride) 250 mls @ 250 mls/hr IV Q12H [facility] Last Admin: 02/08/19 09:43 Dose: 250 mls/hr Documented by: Ibuprofen (Motrin) 600 mg PO QIDP PRN PRN Reason: PAIN/FEVER > 101 Naloxone HCl (Narcan) 0.1 mg IV Q2MIN PRN PRN Reason: Opiate Reversal Ondansetron HCl (Zofran) 4 mg IV Q6HP PRN PRN Reason: Nausea And Vomiting Oxycodone HCl (Roxicodone) 5 mg PO Q4HP PRN PRN Reason: pain not responding to apap Sodium Chloride (Saline Flush) 10 ml IV Q12 [facility] Last Admin: 02/08/19 09:44 Dose: 10 ml Documented by: Sodium Chloride (Saline Flush) 10 ml IV Q8 [facility] Last Admin: 02/08/19 04:28 Dose: Not Given Documented by: Trazodone HCl (Desyrel) 50 mg PO HSP PRN PRN Reason: Insomnia Vancomycin HCl (Vancomycin Per Pharmacy) 1 order IV UD [facility]; Protocol Medical - PN: A/P - Time Spent With Patient Total time spent is greater than 50% in coordination of care (as documented) at patient's floor/unit and/or counseling patient: - Narrative A/P Narrative: A/P Sepsis Cellulitis Methaphetamine use h/o Hep C Tobacco abuse GERD [place] hernia Plan conitnue on abx day 3 today IV vanco and rocephin get blood cultures, results neg so far, if neg at 48-72hrs, will discharge home with oral abx midline placed tachycardia is resolving Pt declined nicotine replacement Famotidine for gerd outpatient surgery follow up for hernia Regular diet Full code Medical - PN: Qual - VTE Deep Vein Thrombosis/Pulmonary Embolism Present on Admission: No
[2019-02-09 06:16] LABS: Basophils # (Auto) 0.1 K/mcL (0.0-0.3); Basophils % (Auto) 0.9 % (0.0-2.0); Eosinophils # (Auto) 0.8 K/mcL (0.0-0.7); Eosinophils % (Auto) 6.1 % (0.0-7.0); Granulocytes % (Auto) 61.8 % (38.0-78.0); Hematocrit 42.4 % (41.0-55.0); Hemoglobin 14.4 g/dL (13.5-16.5); Lymphocytes # (Auto) 2.7 K/mcL (1.5-4.8); Lymphocytes % (Auto) 22.2 % (15.5-49.0); Mean Corpuscular HGB Conc 33.8 g/dL (31.0-36.0); Mean Platelet Volume 9.2 fL (7.4-10.4); Monocytes # (Auto) 1.1 K/mcL (0.1-0.9); Platelet Count 291 K/mcL (140-440); RBC 4.51 M/mcL (4.50-5.90); Red Cell Distribution Width 12.7 % (11.5-14.5); WBC 12.3 K/mcL (4.5-11.0)
[2019-02-09 06:31] LABS: ALT/SGPT 21 U/l (0-40); AST/SGOT 22 U/l (0-37); Albumin 3.2 gm/dL (3.2-5.2); Albumin/Globulin Ratio 0.9 (1.0-2.3); Alkaline Phosphatase 76 U/L (39-117); Bilirubin,Direct < 0.2 mg/dL (0.0-0.3); Bilirubin,Total 0.2 mg/dL (0.0-1.0); Blood Urea Nitrogen 10 mg/dl (8-23); Calcium 8.8 mg/dl (8.6-10.4); Carbon Dioxide 21 mmol/L (22-30); Chloride 104 mmol/L (96-108); Globulin 3.4 gm/dL (2.2-3.7); Glomerular Filtration Rate 99; Glucose 97 mg/dL (70-105); Lactate Dehydrogenase 206 U/L (94-250); Phosphorous 3.8 mg/dL (2.7-4.5); Triglycerides 126 mg/dl (<150); Uric Acid 3.6 mg/dL (2.5-8.0)
[2019-02-09] MEDS: 0.9 % SODIUM CHLORIDE 10 ML SYRINGE IV SCH ×2 (06:47→09:59)
[2019-02-09] MEDS: cefTRIAXone 2 GM in DEXTROSE 5% IN WATER 50 ML IV SCH (07:50)
[2019-02-09] MEDS: LACTATED RINGERS 1,000 ML IV SCH (07:51)
[2019-02-09] MEDS: VANCOMYCIN 1,000 MG in 0.9 % SODIUM CHLORIDE 250 ML IV SCH (08:29)
--- NOTE | 2019-02-09 09:50 | Discharge Summary ---
Medical - DS: Prov Patient information: Note initiated : 02/09/19 at 9:47 am Service Date, if different from initiated Date: [] Patient: Ruben Su a 63 y/o M admitted on 02/06/19 for Hernia Pain, Left Leg Pain, Genital Pain. Chief Complaint: [] Date of admission: 02/06/19 14:30 Discharge date: 02/09/19 Consults: 02/06/19 Consult to Physician [CONS] Stat Comment: Consulting Provider: Ira Rodriguez Reason For Exam: Physician to Consult Discharging clinician: Ira Rodriguez Medical - DS: Meds - Discharge Medications Active and Home Medications: Home Medications No Known Home Meds 02/06/19 [History Confirmed 02/06/19 Last Taken Unknown] Medical - DS: Hosp Hospital course: Mr. Su is a 63 year old M with history of IV drug abuse presents to the emergency room today for evaluation of pain in his right lower extremity not feeling well fever and chills started this morning. The patient what his baseline status yesterday evening I believe he was visiting his mother, his girlfriend and him drove back last night. According to the girlfriend around midnight the patient started to show signs of confusion he was not himself and was not answering some questions appropriately. Around 3:00 this morning the the girlfriend noticed that the patient was hot to touch, had some chills sweaty, he also had pain in his right lower extremity. Patient was therefore brought to the emergency room for further evaluation The patient initially denied use of drug abuse however later admitted that he had short methamphetamine a day or 2 ago. He denies using any other types of drugs On presenting to the emergency room patient had low-grade fever heart rate, tachycardic heart rate ranging from 100 220, blood pressure 117/81, saturating 97% on room air. White blood cell count is elevated at 14.2 hemoglobin 13.9 platelets 119 lactic acid is 0.9 sodium 136 potassium 4.2 bicarbonate 23 creatinine 0.9 glucose 111 UA is negative for infection however does have a few RBCs indicative of microscopic hematuria EKG shows sinus tachycardia, slow progression of R waves in anterior leads indicative of old ASM I. Patient is being admitted to the hospital for further management the diagnosis of right lower extremity cellulitis It was very difficult to establish an IV access and lost IV access for some b lood draw was got on the left lower extremity. He did get vancomycin and IV fluids via this access. 02/07 Patient seen and examined, no acute overnight events, WBC count has trended down. Cellulitis appears much improved clinically. Patient still has chills 02/08 Patient seen examined, no acute issues, tolerating po diet well no cp, sob, feels much better left swelling and erythema much improved pain much improved blood cultures are negative still at 24 hrs 02/09 Pt seen examined, no acute issues, no fever, only some erythema left on the left leg, much improved since admission blood cx neg wbc normal stable for discharge. In Summary A 63-year-old gentleman with a history of drug abuse admitted to the hospital with a diagnosis of right lower extremity cellulitis. He was septic on pres entation, treated with broad-spectrum antibiotics vancomycin and Rocephin. His cultures remain negative, the patient responded quite well to this treatment regimen. He will be discharged on oral Keflex and Bactrim to complete a 7-day course of antibiotic treatment. I have educated him extensively to avoid further use of IV drugs as skin popping was likely the etiology for this episode of cellulitis. The patient also has bilateral inguinal hernia and wishes to have this corrected, he notes that they are symptomatic intermittently and he does have issues going to the bathroom. I will make a referral for him to be seen by the general surgeon in the clinic. Discharge diagnosis: Cellulitis, Hernia - Time Spent with Patient Total time spent providing and/or coordinating discharge services: Greater than 30 minutes Medical - DS: Exam - Constitutional Vitals: Vital Signs Temp Pulse Resp BP Pulse Ox 02/09/19 08:00 88 20 93 02/09/19 06:47 98.6 F 88 20 146/91 93 02/09/19 03:24 98.2 F 90 22 152/97 93 02/08/19 23:03 98.2 F 104 H 22 152/96 92 02/08/19 18:45 98.1 F 95 H 22 146/88 93 02/08/19 15:35 98.2 F 99 H 16 145/90 98 02/08/19 12:00 98.4 F 87 16 139/84 94 Intake and Output 02/08/19 02/09/19 02/09/19 21:59 05:59 13:59 Intake Total 3239 101 0380 Output Total 1050 1400 Balance 240 -1075 1000 Intake: IV 0426 650 8365 Lactated Ringers 1,000 ml @ 125 1000 1000 mls/hr IV .Q8H [facility] Rx#: [id number] Vancomycin 1,000 mg In Sodium 250 Chloride 0.9% 250 ml @ 250 mls/ hr IV Q12H [facility] Rx#:[id number] Oral 290 75 Output: Void Amount 1050 1400 Other: Meal Dinner Percent of Meal Consumed 100% Urine Appearance Clear Clear Urine Color Bright Yellow Pale Pale Urine Odor Normal Normal Normal Weight 141 lb 8 oz Additional comments: Constitutional; Afebrile, cooperative, alert, not in distress. Respiratory system: Air Entry equal on both sides, No crackles or wheezing, no rhonchi. CVS- Rate rhythm regular, S1,S2 heard, no gallop, no rub. 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 Right leg, area of erythema 5x5 cms remaining, no fluctuation, tenderness much improved. Medical - DS: Data Labs on day of discharge: Labs from last 24 hours 02/09/19 02/09/19 04:25 04:25 WBC 12.3 H RBC 4.51 Hgb 14.4 Hct 42.4 MCV 94.0 MCH 31.8 MCHC 33.8 RDW 12.7 Plt Count 291 MPV 9.2 Gran % 61.8 Lymph % (Auto) 22.2 [place] % (Auto) 9.0 Eos % (Auto) 6.1 Baso % (Auto) 0.9 Gran # 7.6 Lymph # (Auto) 2.7 [place] # (Auto) 1.1 H Eos # (Auto) 0.8 H Baso # (Auto) 0.1 Sodium 139 Potassium 4.0 Chloride 104 Carbon Dioxide 21 L Anion Gap 14.0 BUN 10 Creatinine 0.7 GFR Calculation 99 Glucose 97 Uric Acid 3.6 Calcium 8.8 Phosphorus 3.8 Magnesium 2.0 Total Bilirubin 0.2 Direct Bilirubin < 0.2 GGT 22 AST 22 ALT 21 Alkaline Phosphatase 76 Lactate Dehydrogenase 206 Total Protein 6.6 Albumin 3.2 Globulin 3.4 Albumin/Globulin Ratio 0.9 L Triglycerides 126 Preliminary micro results at discharge 02/06/19 16:23 Blood Culture - Preliminary Blood 02/06/19 16:08 Blood Culture - Preliminary Blood Medical - DS: A/P - Patient/Caregiver Discharge Instructions Activity: increase activity as tolerated Diet: Regular Diet Additional Instructions: Follow up with PCP in 1 week (needs new PCP or courtsey follow up in the outpatient clinic) Follow up with General Surgery in 2 weeks ,for hernia evaluation, Dr Davis Take antibiotics, Cephalexin 500mg four times a day x 5 days, Bactrim DS 1 tab twice daily x 5 days Go to the ER if fever, chills , worsening pain/swelling in the leg. Avoid popping the skin with IV drugs, as this will lead to further skin in fections and even more serious infections in your body. - Follow up Plan Disposition: Home, Self-Care Prognosis: Fair Rehab Potential: Fair I certify that the patient requires SNF services: No Overall status at discharge: patient is progressing back to baseline Medical - DS: Qual - VTE Deep Vein Thrombosis/Pulmonary Embolism Present on Admission: No
[2019-02-09] MEDS: HEPARIN 5,000 UNIT/ML VIAL SQ SCH (09:58)
[2019-02-09] MEDS: ACETAMINOPHEN 500 MG TABLET PO SCH (09:59)
[2019-02-09] MEDS: FAMOTIDINE 20 MG TABLET PO SCH (09:59)
== END 2019-02-09 11:55 | disposition home or self-care (01) | DRG 872 ==
LOC: ED 07:52 → MEDSUR 14:30
PROVIDERS: ADMIT Internal Medicine; ATTEND Internal Medicine